=== PATIENT | female | born 1980 | race Caucasian/White ===

== ENCOUNTER 2018-08-27 18:21 | Emergency (ER) | payer SELFPAY ==
[2018-08-27 18:45] VITALS: BP 114/75; PULSE 77; TEMP 97.8; BMI 27.1
--- NOTE | 2018-08-27 18:45 | PDOC ---
Rapid Medical Evaluation Chief Complaint: Nausea/Vomiting Time Seen by Provider: 08/27/18 18:39 Medical Evaluation: 08/27/18 18:41 used a [email or web address] social worker for this encounter: [id number] 38 year old female with NV x 2 days. symptoms started after coming back from [place] 2 days ago. denies abdominal pain, fever/ chills, diarrhea, urinary symptoms. PE: patient alert ox3. A: gastroenteritis P: zantac zofran UA patient to the ER further management of care. 08/27/18 18:47 Discharge Disposition - Diagnosis Gastroenteritis - Referrals - Patient Instructions - Post Discharge Activity
[2018-08-27] MEDS ORDERED: RANITIDINE HCL 150 MG TABLET (FP) PO ONE (18:46)
[2018-08-27] MEDS ORDERED: ONDANSETRON 4 MG TABLET PO ONE ×2 (18:46→18:51)
[2018-08-27] MEDS ORDERED: RANITIDINE HCL 150 MG/10 ML UNIT-DOSE ONE (18:51)
[2018-08-27 20:20] LABS: URINE APPEARANCE CLEAR; URINE BILIRUBIN NEGATIVE (<2.0 mg/dL); URINE COLOR STRAW; URINE GLUCOSE (UA) NEGATIVE (NEGATIVE); URINE KETONE TRACE (NEGATIVE); URINE LEUK ESTERASE 1+ (NEGATIVE); URINE NITRITE NEGATIVE (NEGATIVE); URINE PROTEIN NEGATIVE (NEGATIVE); URINE UROBILINOGEN NEGATIVE mg/dL (0.2-1.0)
[2018-08-27 20:21] LABS: HCG,QUALITATIVE URINE Negative
[2018-08-27 20:29] LABS: EPI CELLS RARE /HPF (FEW); URINE MUCUS RARE
--- NOTE | 2018-08-27 20:42 | PDOC ---
History of Present Illness - General Chief Complaint: Nausea/Vomiting Stated Complaint: ABD PAIN, VOMITTING Time Seen by Provider: 08/27/18 18:39 - History of Present Illness Initial Comments: 08/27/18 20:41 Ms. Jimi Goodwin is a 38 yo female w/ no significant pmh who presents for evaluation of 1 day history of nausea and vomiting. Patient reports she has vomited 6 or 7 times and that vomit has consisted of food she has eaten. Patient also endorses bilateral lower abdominal pain which she reports started after her vomiting. The patient denies chest pain, shortness of breath, headache and dizziness. Denies fever, chills, diarrhea and constipation. Denies dysuria, frequency, urgency and hematuria. Allergies: NKDA Past History - Past Medical History Allergies/Adverse Reactions: Allergies Allergy/AdvReac Type Severity Reaction Status Date / Time No Known Allergies Allergy Verified 08/27/18 18:43 Home Medications: Ambulatory Orders Ondansetron [Zofran *Odt*] 8 mg SL TID #9 od.tablet 08/27/18 COPD: No - Suicide/Smoking/Psychosocial Hx Smoking History: Never smoked Hx Alcohol Use: No Drug/Substance Use Hx: No Review of Systems - Review of Systems Comments:: 08/27/18 20:50 GENERAL/CONSTITUTIONAL: No fever or chills. No weakness. HEAD, EYES, EARS, NOSE AND THROAT: No change in vision. No ear pain or discharge. No sore throat. CARDIOVASCULAR: No chest pain or shortness of breath RESPIRATORY: No cough, wheezing, or hemoptysis. GASTROINTESTINAL: +N/V as described w/ following lower abdominal pain. No diarrhea or constipation. GENITOURINARY: No dysuria, frequency, or change in urination. MUSCULOSKELETAL: No joint or muscle swelling or pain. No neck or back pain. SKIN: No rash NEUROLOGIC: No headache, vertigo, loss of consciousness, or change in strength/ sensation. ENDOCRINE: No increased thirst. No abnormal weight change HEMATOLOGIC/LYMPHATIC: No anemia, easy bleeding, or history of blood clots. ALLERGIC/IMMUNOLOGIC: No hives or skin allergy. *Physical Exam - Vital Signs Last Vital Signs Temp Pulse Resp BP Pulse Ox 97.8 F 77 16 114/75 99 08/27/18 18:43 08/27/18 18:43 08/27/18 18:43 08/27/18 18:43 08/27/18 18:43 - Physical Exam Comments: 08/27/18 20:51 GENERAL: Awake, alert, and fully oriented, in no acute distress HEAD: No signs of trauma, normocephalic, atraumatic EYES: PERRLA, EOMI, sclera anicteric, conjunctiva clear ENT: Auricles normal inspection, hearing grossly normal, nares patent, oropharynx clear without exudates. Moist mucosa NECK: Normal ROM, supple, no lymphadenopathy, JVD, or masses LUNGS: No distress, speaks full sentences, clear to auscultation bilaterally HEART: Regular rate and rhythm, normal S1 and S2, no murmurs, rubs or gallops, peripheral pulses normal and equal bilaterally. ABDOMEN: +Minimal bilateral lower abdominal TTP. Soft, normoactive bowel sounds. No guarding, no rebound. No masses EXTREMITIES: Normal inspection, Normal range of motion, no edema. No clubbing or cyanosis. NEUROLOGICAL: Cranial nerves II through XII grossly intact. Normal speech, normal gait, no focal sensorimotor deficits SKIN: Warm, Dry, normal turgor, no rashes or lesions noted. ED Treatment Course - LABORATORY CBC & Chemistry Diagram: 08/27/18 21:13 08/27/18 21:13 - ADDITIONAL ORDERS Additional order review: Laboratory Results 08/27/18 19:55 Urine Color Straw Urine Appearance Clear Urine pH 5.0 Ur Specific [place] 1.013 Urine Protein Negative Urine Glucose (UA) Negative Urine Ketones Trace H Urine Blood 1+ H Urine Nitrite Negative Urine Bilirubin Negative Urine Urobilinogen Negative Ur Leukocyte Esterase 1+ H Urine WBC (Auto) 5 Urine RBC (Auto) 1 Ur Epithelial Cells Rare Urine Mucus Rare Urine HCG, Qual Negative - Medications Given in the ED: ED Medications Discontinued Medications Generic Name Dose Route Start Last Admin Trade Name Freq PRN Reason Stop Dose Admin Ondansetron HCl 4 mg 08/27/18 18:46 08/27/18 18:55 Zofran - PO 08/27/18 18:47 4 mg ONCE ONE Administration Ranitidine HCl 150 mg 08/27/18 18:46 08/27/18 18:55 Zantac - PO 08/27/18 18:47 150 mg ONCE ONE Administration Medical Decision Making - Medical Decision Making 08/27/18 21:03 Ms. Jimi Goodwin is a 38 yo female w/ pmh as described who presents for evaluation of nausea and vomiting. Patient reportedly improved at evaluation; currently complaining of pain with palpation of abdomen only she believes is due to her frequent vomiting. Will evaluate for electrolyte abnormalities / infection w/ CBC/CMP. UA /upreg grossly wnl as below. 08/27/18 22:08 CBC/CMP grossly wnl. No further episodes of vomiting. Patient feeling well and would like to go home. D/Cing to home w/ zofran Rx. Laboratory Results - last 24 hr 08/27/18 08/27/18 08/27/18 19:55 21:13 21:13 WBC 9.5 RBC 4.41 Hgb 13.4 Hct 39.3 MCV 89.1 MCH 30.4 MCHC 34.2 RDW 13.2 Plt Count 408 MPV 6.9 L Absolute Neuts (auto) 5.9 Neutrophils % 62.6 Lymphocytes % 27.5 Monocytes % 4.6 Eosinophils % 4.5 Basophils % 0.8 Nucleated RBC % 0 Sodium 140 Potassium 4.2 Chloride 106 Carbon Dioxide 26 Anion Gap 9 BUN 11 Creatinine 0.7 Creat Clearance w eGFR > 60 Random Glucose 79 Calcium 8.7 Total Bilirubin 0.3 AST 22 ALT 22 Alkaline Phosphatase 49 Total Protein 7.5 Albumin 3.9 Urine Color Straw Urine Appearance Clear Urine pH 5.0 Ur Specific [place] 1.013 Urine Protein Negative Urine Glucose (UA) Negative Urine Ketones Trace H Urine Blood 1+ H Urine Nitrite Negative Urine Bilirubin Negative Urine Urobilinogen Negative Ur Leukocyte Esterase 1+ H Urine WBC (Auto) 5 Urine RBC (Auto) 1 Ur Epithelial Cells Rare Urine Mucus Rare Urine HCG, Qual Negative *DC/Admit/Observation/Transfer Diagnosis at time of Disposition: Gastroenteritis - Discharge Dispostion Disposition: HOME - Prescriptions Prescriptions: Ondansetron [Zofran *Odt*] 8 mg SL TID #9 od.tablet - Referrals Referrals: [facility] [Provider Group] - Patient Instructions Printed Discharge Instructions: DI for Nausea -- Adult, DI for Vomiting -- Adult Additional Instructions: You were evaluated today in the emergency room for your nausea and vomiting. No concerning findings were found at this time. A prescription has been called to your pharmacy; take all medications as proscribed. Please follow-up with primary care provider in 2-3 days for further evaluation. Return to ER if any fever, chills, return of nausea /vomiting not controllable with medications, or other concerning symptoms. Print Language: WOLOF - Post Discharge Activity
--- NOTE | 2018-08-27 20:44 | PDOC ---
History of Present Illness - General Chief Complaint: Nausea/Vomiting Stated Complaint: ABD PAIN, VOMITTING Time Seen by Provider: 08/27/18 18:39 Past History - Past Medical History Allergies/Adverse Reactions: Allergies Allergy/AdvReac Type Severity Reaction Status Date / Time No Known Allergies Allergy Verified 08/27/18 18:43 Home Medications: Ambulatory Orders NK [No Known Home Medication] 08/27/18 COPD: No - Suicide/Smoking/Psychosocial Hx Smoking History: Never smoked Hx Alcohol Use: No Drug/Substance Use Hx: No *Physical Exam - Vital Signs Last Vital Signs Temp Pulse Resp BP Pulse Ox 97.8 F 77 16 114/75 99 08/27/18 18:43 08/27/18 18:43 08/27/18 18:43 08/27/18 18:43 08/27/18 18:43 ED Treatment Course - ADDITIONAL ORDERS Additional order review: Laboratory Results 08/27/18 19:55 Urine Color Straw Urine Appearance Clear Urine pH 5.0 Ur Specific [place] 1.013 Urine Protein Negative Urine Glucose (UA) Negative Urine Ketones Trace H Urine Blood 1+ H Urine Nitrite Negative Urine Bilirubin Negative Urine Urobilinogen Negative Ur Leukocyte Esterase 1+ H Urine WBC (Auto) 5 Urine RBC (Auto) 1 Ur Epithelial Cells Rare Urine Mucus Rare Urine HCG, Qual Negative - Medications Given in the ED: ED Medications Discontinued Medications Generic Name Dose Route Start Last Admin Trade Name Elmerq PRN Reason Stop Dose Admin Ondansetron HCl 4 mg 08/27/18 18:46 08/27/18 18:55 Zofran - PO 08/27/18 18:47 4 mg ONCE ONE Administration Ranitidine HCl 150 mg 08/27/18 18:46 08/27/18 18:55 Zantac - PO 08/27/18 18:47 150 mg ONCE ONE Administration *DC/Admit/Observation/Transfer Diagnosis at time of Disposition: Gastroenteritis - Referrals - Patient Instructions - Post Discharge Activity
[2018-08-27 21:21] LABS: BASO % 0.8 % (0-2.0); EOS % 4.5 % (0-4.5); HEMATOCRIT 39.3 % (32.4-45.2); HEMOGLOBIN 13.4 GM/dL (10.7-15.3); LYMPH % 27.5 % (8-40); MCH 30.4 pg (25.7-33.7); MCHC 34.2 g/dl (32.0-36.0); MEAN CELL VOLUME 89.1 fl (80-96); MEAN PLT VOLUME 6.9 fl (7.5-11.1); MONO % 4.6 % (3.8-10.2); NEUT % 62.6 % (42.8-82.8); PLATELET COUNT 408 K/MM3 (134-434); RBC 4.41 M/mm3 (3.60-5.2); RDW 13.2 % (11.6-15.6); WHITE BLOOD COUNT 9.5 K/mm3 (4.0-10.0)
--- NOTE | 2018-08-27 21:37 | PDOC ---
Attending Attestation - Resident Resident Name: Bryn Jones - HPI HPI: 08/27/18 21:38 Patient is a 38 year old female with no past medical history who presents to the emergency department for evaluation of a 1 day history of nausea with 7 episodes of non bloody emesis. She reports returning from visiting [place] a few days ago. Denies abdominal pain, fevers and chills. - Physicial Exam PE: GENERAL: Awake, alert, and fully oriented, in no acute distress ABDOMEN: Soft, nontender, normoactive bowel sounds. No guarding, no rebound. No masses Attestations - Attestations Documentation prepared by Robbie Hannon, acting as certified medical coding specialist for Magda Bhatia MD.
[2018-08-27 21:48] LABS: ALBUMIN 3.9 g/dl (3.4-5.0); ALK PHOS 49 U/L (45-117); ANION GAP 9 MMOL/L (8-16); BILIRUBIN,TOTAL 0.3 mg/dL (0.2-1); BLOOD UREA NITROGEN 11 mg/dL (7-18); CALCIUM 8.7 mg/dL (8.5-10.1); CHLORIDE 106 mmol/L (98-107); CO2 26 mmol/L (21-32); CREATININE 0.7 mg/dL (0.55-1.3); GLUCOSE,RANDOM 79 mg/dL (74-106); POTASSIUM 4.2 mmol/L (3.5-5.1); SGOT/AST 22 U/L (15-37); SGPT/ALT 22 U/L (13-61); SODIUM 140 mmol/L (136-145); TOT PROT 7.5 g/dl (6.4-8.2)
== END 2018-08-27 22:33 | disposition home or self-care (01) ==
LOC: JER 18:21
DX: K52.9 Noninfective gastroenteritis and colitis, unspecified (principal)
CPT/HCPCS: 36415; 80053; 81003; 81015; 84703; 85025; 99282-25